=== PATIENT | female | born 1950 | race Caucasian/White ===

== ENCOUNTER 2018-02-17 14:33 | Emergency (ER) | payer OTHER ==
[~2018-02-17] VITALS: Ht 154.9 cm; Wt 52.6 kg
[~2018-02-17 14:33] MED LIST: ADVAIR; ALBU90I; ALBU90OI INH; ALBU90OI6 INH; ALBU90OI61 INH; ALPR.25; ALPR.5 PO; ALPR1 PO; ANTI-HYPERTENSIVE; ASCO500 PO; ASPI81EC PO; ATOR40TA PO; ATOR80 PO; AZIT250 PO; Accuneb0.63 MG/3 INH; Advair Hfa 230-12 GM INH; BUPR150T2 PO; BUSP10 PO; BUSP5 PO; CHOL10002 PO; CLON.1; CLON.1 PO; CLOT10 PO; COLCRYS0.6 MG PO; CONEST.625; DIGO.125; DILT180 PO; DILT180ER PO; DILT240 PO; DILT240ER PO; DILT300 PO; DOC250 PO; DOCU100 PO; DOXY100 PO; ERGO400 PO; ESCI10 PO; ESCI20 PO; ESCI5; EZET10 PO; FEBU40TA PO; FERR325 PO; FERREX PO; FISH OIL 1,0001 EAC1 PO; FISH OIL OMEGA1 EAC2 PO; FLUC150A PO; FLUSAL2505 IH; FLUSAL2505 INH; FLUSAL5005 IH; FURO40 PO; Ferrous Sulfat325 MG PO; GABA100 PO; GUAI600T33; GUAI600T33 PO; HYDACE10A PO; HYDACE5; HYDACE5 PO; LASIX; LAVAP17G PO; LEVA1.25 IH; LEVFLO250 PO; LEVFLO500 PO; LEVO750 PO; LISI20 PO; LISI5 PO; MONT10T PO; MUSINEX; NITR100CA PO; NYST100P TOP; NYST100SU MT; Norco 10-325 T1 EACH PO; Norco 5-325 Ta1 EACH PO; OMEP20ER PO; OXYGEN; Omega 3 1,0001 EACH PO; PANT40 PO; POTASSIUM; POTCHL20ER PO; PRAM.125 PO; PRAV20 PO; PRED20 PO; PRED5 PO; PROBIOTIC PO; PROBIOTIC1 EAC1 PO; RANI150; RANI150 PO; Razadyne8 MG PO; SPIRIVA INH; TAZTIA PO; TAZTIA XT360 MG PO; THEO300ERA PO; THEO300ERC PO; THEOPHYLLINE; TIOT18; TIOT18 IH; TIOT18 INH; Ventolin5 MG/1 ML INH; Vitamin C500 M3 PO; [UNRECOGNIZED DRUG - OTHER] PO; oxygen
[2018-02-17 15:35] LABS: BASOPHILS ABSOLUTE AUTO 0.03 K/mm3 (0.00-0.23); BASOPHILS PERCENT AUTO 0 % (0-2); EOSINOPHILS PERCENT AUTO 1 % (0-6); Hematocrit 44.6 % (33.0-51.0); Hemoglobin 13.9 g/dL (11.5-16.0); IMMATURE GRAN ABSOLUTE AUTO 0.05 K/mm3 (0.00-0.10); IMMATURE GRAN PERCENT AUTO 1 % (0-1); LYMPHOCYTES ABSOLUTE AUTO 1.15 K/mm3 (0.84-5.20); LYMPHOCYTES PERCENT AUTO 11 % (21-46); MONOCYTES ABSOLUTE AUTO 0.61 K/mm3 (0.16-1.47); MONOCYTES PERCENT AUTO 6 % (4-13); Mean Corpuscular HGB 29.2 pg (26.0-34.0); Mean Corpuscular HGB Conc 31.2 g/dL (31.5-36.5); Mean Corpuscular Volume 94 fL (80-100); Mean Platelet Volume 10.3 fL (9.1-12.4); NEUTROPHILS ABSOLUTE AUTO 8.62 K/mm3 (1.96-9.15); NEUTROPHILS PERCENT AUTO 82 % (41-73); Platelet Count 159 K/mm3 (150-400); RDW Coefficient Variation 12.7 % (11.7-14.2); Red Blood Cell Count 4.76 M/mm3 (3.80-5.20); White Blood Cell Count 10.56 K/mm3 (4.00-11.30)
[2018-02-17 15:52] LABS: Alanine Aminotransfer (ALT/SGP 14 U/L (12-78); Albumin, Blood 3.8 g/dL (3.4-5.0); Alk Phos 56 U/L (50-136); Anion Gap 9 mmol/L (6-16); Aspartate Aminotrans (AST/SGOT 17 U/L (12-37); Bilirubin, Total 0.4 mg/dL (0.1-1.0); Blood Urea Nitrogen 22 mg/dL (8-24); CO2, Blood 24 mmol/L (21-32); Chloride, Blood 103 mmol/L (98-108); Creatinine, Blood 1.22 mg/dL (0.40-1.00); Glomerular Filtration Rate 46 (60-); Glucose, Blood 87 mg/dL (70-99); Sodium, Blood 136 mmol/L (136-145); Total Protein, Blood 7.8 g/dL (6.4-8.2); Troponin I <0.015 ng/mL (0.000-0.040)
[2018-02-17 16:28] LABS: Source, Urine Catheter
[2018-02-17 16:31] LABS: Bilirubin, Urine Neg (Neg); Blood, Urine Neg (Neg); Glucose Qualitative, Urine Neg (Neg); Ketones, Urine Neg (Neg); Leukocyte Esterase, Urine Neg (Neg); Nitrite, Urine Neg (Neg); Protein, Urine Neg (Neg); Urobilinogen, Urine NORM (Normal)
[2018-02-17 16:38] LABS: Appearance, Urine Clear (Clear); Color, Urine Yellow (P-Yellow)
== END 2018-02-17 18:05 | disposition home or self-care (01) ==
LOC: ER 14:33
PROVIDERS: Emergency Medicine; Physician Assistant
DX: R05 Cough (principal); Z87.891 Personal history of nicotine dependence; Z79.899 Other long term (current) drug therapy; Z79.2 Long term (current) use of antibiotics; J44.9 Chronic obstructive pulmonary disease, unspecified; I12.9 Hypertensive chronic kidney disease with stage 1 through stage 4 chronic kidney disease, or unspecified chronic kidney disease; N18.9 Chronic kidney disease, unspecified; F41.9 Anxiety disorder, unspecified; D64.9 Anemia, unspecified
CPT/HCPCS: 36415; 71046; 80053; 81003; 83605; 84484; 85025; 93005; 93010; 99283; J7030

== ENCOUNTER → 2018-08-14 | Outpatient (CLI) | payer OTHER ==
[~2018-08-14] MED LIST changes: +ACET325 PO; +ACIDOPHILUS LA1 EACH PO; +MELA3 PO; +METO25 PO; +POTCHL10ER PO; +Senna-Extra17.2 MG PO
[2018-08-14 19:12] LABS: Appearance, Urine Cloudy (Clear); Bilirubin, Urine Neg (Neg); Blood, Urine 3+ (Neg); Color, Urine Yellow (P-Yellow); Glucose Qualitative, Urine Neg (Neg); Ketones, Urine Neg (Neg); Leukocyte Esterase, Urine 3+ (Neg); Nitrite, Urine Pos (Neg); Protein, Urine 3+ (Neg); Specific Gravity, Urine 1.015 (1.003-1.022); Urobilinogen, Urine NORM (Normal)
[2018-08-14 19:53] LABS: Bacteria Many /hpf; Squamous Epithelial Cells Few /hpf (Few); White Blood Cells, Urine TNTC /hpf (0-5)
== END | disposition home or self-care (01) ==
LOC: LAB SHORT 10:20 → LAB 10:20
PROVIDERS: Family Medicine
DX: N39.0 Urinary tract infection, site not specified (principal)
CPT/HCPCS: 81001; 87077; 87086; 87186

== ENCOUNTER → 2018-09-28 | Outpatient (CLI) | payer OTHER ==
[2018-09-29 12:09] LABS: Source, Urine Clean Catch
[2018-09-29 13:10] LABS: Appearance, Urine Turbid (Clear); Bilirubin, Urine Neg (Neg); Blood, Urine 3+ (Neg); Color, Urine Yellow (P-Yellow); Glucose Qualitative, Urine Neg (Neg); Ketones, Urine Neg (Neg); Leukocyte Esterase, Urine 3+ (Neg); Nitrite, Urine Pos (Neg); Protein, Urine 2+ (Neg); Specific Gravity, Urine 1.015 (1.003-1.022); Urobilinogen, Urine NORM (Normal)
[2018-09-29 13:20] LABS: Bacteria Many /hpf; Red Blood Cells, Urine TNTC /hpf (0-2); Squamous Epithelial Cells Mod /hpf (Few); White Blood Cells, Urine TNTC /hpf (0-5)
== END | disposition home or self-care (01) ==
LOC: LAB 12:07 → LAB SHORT 12:07
PROVIDERS: Family Medicine
DX: N39.0 Urinary tract infection, site not specified (principal)
CPT/HCPCS: 81001; 87077; 87086; 87186

== ENCOUNTER 2018-10-14 18:47 | Emergency (ER) | payer OTHER ==
[~2018-10-14] VITALS: Ht 157.5 cm; Wt 56.7 kg
== END 2018-10-14 23:12 | disposition home or self-care (01) ==
LOC: ER 18:47
DX: S02.2XXA Fracture of nasal bones, initial encounter for closed fracture (principal); S01.21XA Laceration without foreign body of nose, initial encounter; S01.111A Laceration without foreign body of right eyelid and periocular area, initial encounter; J44.9 Chronic obstructive pulmonary disease, unspecified; F03.90 Unspecified dementia, unspecified severity, without behavioral disturbance, psychotic disturbance, mood disturbance, and anxiety; Z79.899 Other long term (current) drug therapy; Z87.891 Personal history of nicotine dependence; W19.XXXA Unspecified fall, initial encounter
CPT/HCPCS: 12013; 70160; 99283-25

== ENCOUNTER → 2018-11-10 | Outpatient (CLI) | payer OTHER ==
[2018-11-10 19:37] LABS: Appearance, Urine Cloudy (Clear); Bilirubin, Urine Neg (Neg); Blood, Urine 3+ (Neg); Color, Urine Yellow (P-Yellow); Glucose Qualitative, Urine Neg (Neg); Ketones, Urine 1+ (Neg); Leukocyte Esterase, Urine 3+ (Neg); Nitrite, Urine Pos (Neg); Protein, Urine 2+ (Neg); Urobilinogen, Urine NORM (Normal)
[2018-11-10 19:44] LABS: White Blood Cells, Urine TNTC /hpf (0-5)
[2018-11-10 19:45] LABS: Bacteria Many /hpf; Red Blood Cells, Urine 0-2 /hpf (0-2); Squamous Epithelial Cells Few /hpf (Few)
== END | disposition home or self-care (01) ==
LOC: LAB SHORT 19:16 → LAB 19:16
PROVIDERS: Family Medicine
DX: N39.0 Urinary tract infection, site not specified (principal)
CPT/HCPCS: 81001; 87077; 87086; 87186

== ENCOUNTER 2018-11-29 15:05 | Inpatient (IN) | payer OTHER ==
[~2018-11-29] VITALS: Ht 157.5 cm; Wt 49.9 kg
[2018-11-29 15:31] LABS: BASOPHILS ABSOLUTE AUTO 0.02 K/mm3 (0.00-0.23); BASOPHILS PERCENT AUTO 0 % (0-2); EOSINOPHILS PERCENT AUTO 0 % (0-6); Hematocrit 42.7 % (33.0-51.0); Hemoglobin 12.7 g/dL (11.5-16.0); IMMATURE GRAN ABSOLUTE AUTO 0.06 K/mm3 (0.00-0.10); IMMATURE GRAN PERCENT AUTO 1 % (0-1); LYMPHOCYTES ABSOLUTE AUTO 0.26 K/mm3 (0.84-5.20); LYMPHOCYTES PERCENT AUTO 2 % (21-46); MONOCYTES ABSOLUTE AUTO 0.32 K/mm3 (0.16-1.47); MONOCYTES PERCENT AUTO 3 % (4-13); Mean Corpuscular HGB 28.8 pg (26.0-34.0); Mean Corpuscular HGB Conc 29.7 g/dL (31.5-36.5); Mean Corpuscular Volume 97 fL (80-100); Mean Platelet Volume 10.8 fL (9.1-12.4); NEUTROPHILS ABSOLUTE AUTO 12.01 K/mm3 (1.96-9.15); NEUTROPHILS PERCENT AUTO 95 % (41-73); Platelet Count 149 K/mm3 (150-400); RDW Coefficient Variation 13.9 % (11.7-14.2); RDW Standard Deviation 49.8 fL (35.1-46.3); Red Blood Cell Count 4.41 M/mm3 (3.80-5.20); White Blood Cell Count 12.67 K/mm3 (4.00-11.30)
[2018-11-29 15:43] LABS: Albumin, Blood 3.2 g/dL (3.4-5.0); Bilirubin, Total 0.4 mg/dL (0.1-1.0); Bun/Creatinine Ratio 27.6 (12.0-20.0); Calcium, Blood 9.7 mg/dL (8.5-10.1); Creatinine, Blood 1.05 mg/dL (0.40-1.00); Globulin, Blood 3.2 g/dL (2.2-4.0); Total Protein, Blood 6.4 g/dL (6.4-8.2)
[2018-11-29] MEDS ORDERED: Halcion0.25 MG PO (16:23)
[2018-11-29] MEDS ORDERED: HALO.5 PO (16:24)
[2018-11-29] MEDS ORDERED: VENL75ER PO (16:25)
[2018-11-29] MEDS ORDERED: FEBU40TA (16:26)
[2018-11-29] MEDS ORDERED: ALPR.25 PO (16:28)
--- NOTE | 2018-11-29 17:55 | NUR ---
ADMIT TO 313 FROM ED PT ASSISTED FROM ER STRETCHER TO HOSPITAL BED. PT AWAKE, MOANING, GRIMACING, DAUGHTER AND OTHER FAMILY MEMBERS AT BEDSIDE. COMFORT CART ORDERED. BED IN LOW AND LOCKED POSITION. SUCTION SET UP AT BEDSIDE. FAMILY INSTRUCTED INTERN PRODUCT MARKETING MANAGER LIGHT USE AND FREQUENT ROUNDING. PALLIATIVE CARE CONSULT COMPLETED IN ED AND ONGOING.
--- NOTE | 2018-11-30 08:15 | NUR ---
NOTIFIED HOSPITALIST OF PT PASSING. GRANDSON AT BEDSIDE, HE NOTIFIED FAMILY.
--- NOTE | 2018-11-30 09:30 | NUR ---
FAMILY STATED HOME: [facility] IN [facility]IC[facility]
--- NOTE | 2018-11-30 11:30 | NUR ---
FAMILY LEFT WITH PT PERSONAL POSSESSIONS, INFORMED ME THEY ARE LEAVING AND TO PLEASE CALL HOME TO MAKE ARRANGEMENTS FOR DIRECTOR DRUG. INFORMED CHARGE NURSE.
--- NOTE | 2018-11-30 13:11 | NUR ---
JOSE CARLOS JONES FROM [facility] PICKED UP PATIENT FOR TRANSPORT.
== END 2018-11-30 08:15 | DRG 56 ==
LOC: ER 15:05 → MEDS 16:01
PROVIDERS: Emergency Medicine; ADMIT Hospitalist
DX: G31.83 Neurocognitive disorder with Lewy bodies (principal); J69.0 Pneumonitis due to inhalation of food and vomit; J96.21 Acute and chronic respiratory failure with hypoxia; R40.20 Unspecified coma; J44.9 Chronic obstructive pulmonary disease, unspecified; F02.80 Dementia in other diseases classified elsewhere, unspecified severity, without behavioral disturbance, psychotic disturbance, mood disturbance, and anxiety; Z51.5 Encounter for palliative care; F41.9 Anxiety disorder, unspecified; I12.9 Hypertensive chronic kidney disease with stage 1 through stage 4 chronic kidney disease, or unspecified chronic kidney disease; N18.9 Chronic kidney disease, unspecified; M10.9 Gout, unspecified
CPT/HCPCS: 51702; 80053; 85025; 93005; 93010; 96374-59; 99285-25; J2060